=== PATIENT | male | born 1965 | race Caucasian/White ===

== ENCOUNTER 2017-04-15 04:17 | Emergency (ER) | payer BC ==
[2017-04-15] MEDS ORDERED: Diphtheria,Pertussis(Acell),Tetanus Vaccine 0.5 ML Syringe IM ONE (04:20)
[2017-04-15] MEDS ORDERED: Silver Sulfadiazine 1% Crm 400 GM Jar TOP ONE (04:20)
[2017-04-15] MEDS ORDERED: Silver Sulfadiazine 1% Crm 50 GM Tube TOP ONE (04:23)
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
[2017-04-15 06:04] VITALS: BP 135/80
== END 2017-04-15 05:50 | disposition home or self-care (01) ==
LOC: MW.ED 04:17
DX: T20.06XA Burn of unspecified degree of forehead and cheek, initial encounter (principal); T21.03XA Burn of unspecified degree of upper back, initial encounter; T22.00XA Burn of unspecified degree of shoulder and upper limb, except wrist and hand, unspecified site, initial encounter; T31.0 Burns involving less than 10% of body surface; F17.210 Nicotine dependence, cigarettes, uncomplicated; Z23 Encounter for immunization; Z90.49 Acquired absence of other specified parts of digestive tract; X02.0XXA Exposure to flames in controlled fire in building or structure, initial encounter
CPT/HCPCS: 16000; 90471; 90715; 99283; A9270

== ENCOUNTER 2020-05-11 09:28 | Day surgery (SDC) | payer BC ==
[~2020-05-11 09:28] MED LIST: Lactated Ringers 1,000 ML IV SCH; Lidocaine 2% 5 ML SDV ONE; Propofol 200 MG/20 ML SDV ONE; Sodium Chloride 0.9% 10 ML SDV IV PRN; Sodium Chloride 0.9% 10 ML Syringe FLUSH PRN; Sodium Chloride 0.9% 2.5 ML Syringe FLUSH PRN; fentaNYL 100 MCG/2 ML SDV ONE
[2020-05-11] MEDS ORDERED: Midazolam 1 MG/ML 2 ML SDV ONE (10:28)
[2020-05-11] MEDS ORDERED: Propofol 200 MG/20 ML SDV ONE ×2 (10:56→11:11)
--- NOTE | 2020-05-11 11:31 | PCM.OPNOTE ---
- General Post-Op/Procedure Note Date of Surgery/Procedure: 05/11/20 Operative Procedure(s): Diagnostic EGD and Colonoscopy Findings: 1) Gastritis 2) GERD 3) Grade IV hemorrhoid 4) Cecal polyp sessile along cecal cap fold 5) Pedunculated irregular appearing polyp at 25 cm in sigmoid colon 6) Hepatic flexure polyp 7) Transverse colon polyp 8) Splenic flexure polyp x 3 Pre Op Diagnosis: History of GERD, colon polyps Post-Op Diagnosis: 1) Gastritis. 2) GERD. 3) Grade IV hemorrhoid. 4) Cecal polyp sessile along cecal cap fold. 5) Pedunculated irregular appearing polyp at 25 cm in sigmoid colon. 6) Hepatic flexure polyp. 7) Transverse colon polyp. 8) Splenic flexure polyp x 3 Anesthesia Technique: MAC Primary Surgeon: Eliana Lagunas Condition: Good
[2020-05-11 11:50] VITALS: BP 126/72
[2020-05-11 13:16] VITALS: PULSE 67
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
--- NOTE | 2020-05-11 13:21 | PCM.POSTAN ---
POST ANESTHESIA ASSESSMENT - MENTAL STATUS Mental Status: Alert, Oriented - VITAL SIGNS Vital Signs: Last Vital Signs Temp 36.1 C 05/11/20 11:55 Pulse 67 05/11/20 11:55 Resp 14 05/11/20 11:55 BP 126/72 05/11/20 11:55 Pulse Ox 94 L 05/11/20 11:49 - RESPIRATORY Respiratory Status: Respiratory Rate WNL, Airway Patent, O2 Saturation Stable - CARDIOVASCULAR CV Status: Pulse Rate WNL, Blood Pressure Stable - GASTROINTESTINAL GI Status: No Symptoms - PAIN Pain Score: 0 - POST OP HYDRATION Hydration Status: Adequate & Stable - OBSERVATIONS Free Text/Narrative:: No anesthesia problems
--- NOTE | 2020-05-11 13:22 | PCM48HPAN ---
Post Anesthesia Note - EVALUATION WITHIN 48HRS OF ANESTHETIC Vital Signs in Normal Range: Yes Patient Participated in Evaluation: Yes Respiratory Function Stable: Yes Airway Patent: Yes Cardiovascular Function Stable: Yes Hydration Status Stable: Yes Pain Control Satisfactory: Yes Nausea and Vomiting Control Satisfactory: Yes Vital Signs: Last Vital Signs Temp 36.1 C 05/11/20 11:55 Pulse 67 05/11/20 11:55 Resp 14 05/11/20 11:55 BP 126/72 05/11/20 11:55 Pulse Ox 94 L 05/11/20 11:49 - COMMENTS/OBSERVATIONS Free Text/Narrative:: No anesthesia problems
--- NOTE | 2020-05-13 21:54 | OR ---
SURGEON: ELIANA LAGUNAS MD DATE OF PROCEDURE: 05/11/2020 PREOPERATIVE DIAGNOSES: History of colon polyps, gastroesophageal reflux disease. POSTOPERATIVE DIAGNOSES: 1. Gastroesophageal reflux disease. 2. Gastritis. 3. Grade 4 hemorrhoids. 4. Cecal polyp. 5. Transverse colon polyp. 6. Hepatic flexure polyp. 7. Splenic flexure polyp x3. 8. Pedunculated sigmoid colon polyp at 25 cm. PROCEDURES PERFORMED: Diagnostic esophagogastroduodenoscopy and diagnostic colonoscopy with polypectomy. PRIMARY SURGEON: Eliana Lagunas MD ANESTHESIA: MAC. INSTRUMENT USED: Olympus endoscope and colonoscope. EXTENT OF EXAM: To the second portion of duodenum, to the cecum. PREPARATION: Fair. LIMITATIONS: None. INDICATIONS FOR EXAMINATION: The patient is a 55-year-old male with a longstanding history of GERD. Recently, his symptoms had been becoming worse. With dietary modification, the symptoms had improved. He continues to have reflux though. He also has a history of colon polyps. He was supposed to follow up 3 years after his original colonoscopy, but never did. He is due for diagnostic colonoscopy. I explained the procedures, expected perioperative course, and the risks. He verbalized understanding and wishes to proceed. PROCEDURE IN DETAIL: The patient was brought to the endoscopy suite and placed in a left lateral decubitus position. A time-out was completed verifying the patient's name, age, date of , allergies, and procedure to be performed. Monitored anesthesia care was induced and a bite block was placed in the patient's mouth. Continuous oxygen was provided via nasal cannula throughout the procedure. After adequate sedation was achieved, a well-lubricated endoscope was placed in the patient's mouth and advanced under direct visualization to the second portion of duodenum. This appeared normal and a photograph was taken. The scope was then fully withdrawn while examining the color, texture, anatomy, and integrity of the mucosa of the upper GI tract. The duodenal mucosa appeared normal. The scope was brought into the stomach and a photograph was taken of the pylorus and GE junction. Both appeared anatomically normal. The stomach appeared to have signs of some mild gastritis, especially within the antrum. Biopsies were taken of the antrum, body, and fundus, and sent for histologic review and H. pylori testing. The scope was then brought into the distal esophagus and a photograph was taken of the Z-line. The patient was noted to have some mild irregularity of the Z-line consistent with GERD. A biopsy of this area was taken and sent to pathology, labeled as esophagus. The remainder of the esophagus appeared normal. The scope was removed and this portion of procedure was terminated. I then turned to the colonoscopy portion of the case. A digital rectal exam was performed. The patient was noted to have prolapsed internal hemorrhoids. A well-lubricated colonoscope was inserted in the rectum and advanced under direct visualization to the level of the cecum. The cecum was identified by both visual and anatomic landmarks. A photograph was taken of the cecal cap as well as with the scope retroflexed within the cecum. The scope was then fully withdrawn while examining the color, texture, anatomy, and integrity of the mucosa from the cecum to the anal canal. At the cecal cap, the patient was noted to have a larger sessile cecal polyp. It was felt that this would be better removed with possibly a saline lift. A photograph of it was taken. The patient had a polyp at the hepatic flexure as well as at the transverse colon and at the splenic flexure. These were small and sessile and removed easily using cold biopsy forceps. At 25 cm within the colon, a large pedunculated polyp was noted. The polyp at the top of the stalk appeared very irregular. The decision was made to take photographs of this and send the patient to Colorectal Surgery for removal of both this and the cecal polyp. The scope was then brought into the rectum and retroflexed to allow visualization of the anal canal opening. This appeared normal and a photograph was taken. The scope was then straightened out and fully withdrawn. The cecum to anus time was 33 minutes. The patient tolerated both the procedures well and was taken to the PACU in stable condition. ENDOSCOPIC DIAGNOSES: 1. Gastroesophageal reflux disease. 2. Gastritis. 3. Grade 4 hemorrhoids. 4. Cecal polyp. 5. Transverse colon polyp. 6. Hepatic flexure polyp. 7. Splenic flexure polyp x3. 8. Pedunculated sigmoid colon polyp at 25 cm. RECOMMENDATIONS: 1. For the GERD and gastritis, I ordered pantoprazole 40 mg daily. The patient was slightly reluctant to take this. I told him he can take it now, or we can wait until we see the biopsy results. We will follow up with him in clinic in 2 weeks to discuss the biopsy results. 2. We will follow up on the results of the small sessile polyps I removed; however, we will make a referral for the patient to see a colorectal surgeon to remove the two other polyps in the near future. JOHN ESPARZA /[id number]
== END 2020-05-11 12:32 | disposition home or self-care (01) ==
LOC: MW.SDS 09:28
PROVIDERS: ATTEND Surgery
DX: D12.3 Benign neoplasm of transverse colon (principal); D12.0 Benign neoplasm of cecum; K64.3 Fourth degree hemorrhoids; K29.50 Unspecified chronic gastritis without bleeding; B96.81 Helicobacter pylori [H. pylori] as the cause of diseases classified elsewhere; E66.9 Obesity, unspecified; K21.9 Gastro-esophageal reflux disease without esophagitis; Z86.010 Personal history of colon polyps; Z98.890 Other specified postprocedural states; Z68.30 Body mass index [BMI] 30.0-30.9, adult; Z88.8 Allergy status to other drugs, medicaments and biological substances; Z87.891 Personal history of nicotine dependence
CPT/HCPCS: 43239; 45380; J2001; J2250; J2704; J3010; J7120; 88305; 88312